=== PATIENT | female | born 1955 | race Caucasian/White ===

== ENCOUNTER 2022-07-20 17:36 | Emergency (ER) | payer OTHER ==
[~2022-07-20] VITALS: Ht 149.9 cm; Wt 78.2 kg
[2022-07-20] MEDS ORDERED: ASPI-1450 PO (17:46)
[2022-07-20] MEDS ORDERED: antibiotic PO (17:46)
[2022-07-20] MEDS ORDERED: TRAM-559 PO (17:46)
[2022-07-20] MEDS ORDERED: cholesterol med PO (17:46)
[2022-07-20] MEDS ORDERED: GABA-1216 PO (17:46)
[2022-07-20] MEDS ORDERED: METF-1185 PO (17:46)
[2022-07-20] MEDS ORDERED: HTN MEDS PO (17:46)
[2022-07-20] MEDS ORDERED: TRI2560LO TP (17:50)
[2022-07-20] MEDS ORDERED: LISI5TAB21 PO (17:50)
[2022-07-20] MEDS ORDERED: CHOL200059 PO (17:50)
[2022-07-20] MEDS ORDERED: CLOB15CR41 TP (17:50)
[2022-07-20] MEDS ORDERED: EMPA25TA3 PO (17:50)
[2022-07-20] MEDS ORDERED: LINA72CA PO (17:50)
[2022-07-20] MEDS ORDERED: ATOR40TA71 PO (17:50)
[2022-07-20] MEDS ORDERED: GABA-1181 PO (17:50)
[2022-07-20] MEDS ORDERED: METF-445 PO (17:50)
[2022-07-20] MEDS ORDERED: METO25 PO (17:50)
[2022-07-20 17:56] LABS: GLUCOMETER DEV NAME(LOC) ERT.5; GLUCOSE,POINT OF CARE 131 MG/DL (70-110)
[2022-07-20 18:29] VITALS: BP 139/86
[2022-07-20] MEDS ORDERED: KETOROLAC TROMETHAMINE 30 MG/ML VIAL IM ONE (18:45)
== END 2022-07-20 19:02 | disposition home or self-care (01) ==
LOC: EMS 17:41
DX: R21 Rash and other nonspecific skin eruption (principal); E11.9 Type 2 diabetes mellitus without complications; E78.00 Pure hypercholesterolemia, unspecified; I10 Essential (primary) hypertension; G89.29 Other chronic pain; M54.9 Dorsalgia, unspecified; Z90.49 Acquired absence of other specified parts of digestive tract; Z98.890 Other specified postprocedural states
CPT/HCPCS: 99283; 82962; 96372; J1885